=== PATIENT | male | born 1970 | race American Indian/Alaskan Native ===

== ENCOUNTER 2017-05-10 15:39 | Emergency (ER) | payer MEDICAID ==
[2017-05-10] MEDS ORDERED: Lidocaine 1% 20 ML MDV INJECT ONE (15:52)
[2017-05-10 16:45] VITALS: BP 120/68
[2017-05-10] MEDS ORDERED: Ketorolac 30 MG/ML SDV IVPUSH ONE (18:04)
[2017-05-10] MEDS ORDERED: ceFAZolin 1 GM in Sodium Chloride 0.9% 50 ML IV ONE (18:04)
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
== END 2017-05-10 18:52 | disposition home or self-care (01) ==
LOC: JP.ED 15:39
DX: S01.81XA Laceration without foreign body of other part of head, initial encounter (principal); F17.210 Nicotine dependence, cigarettes, uncomplicated; Z87.01 Personal history of pneumonia (recurrent); W22.8XXA Striking against or struck by other objects, initial encounter
CPT/HCPCS: 12015; 70450; 70486; 96365; 96375; 99284; J0690; J1885; J7050; 99282-25

== ENCOUNTER 2023-08-16 05:10 | Emergency (ER) | payer MEDICAID ==
[2023-08-16 05:18] VITALS: BP 118/72; PULSE 84
== END 2023-08-16 06:30 | disposition home or self-care (01) ==
LOC: JP.ED 05:10
DX: S52.571A Other intraarticular fracture of lower end of right radius, initial encounter for closed fracture (principal); S52.611A Displaced fracture of right ulna styloid process, initial encounter for closed fracture; W10.9XXA Fall (on) (from) unspecified stairs and steps, initial encounter
CPT/HCPCS: 73110-26-RT; 73110-RT; 99283

== ENCOUNTER 2023-08-21 06:01 | Day surgery (SDC) | payer MEDICAID ==
[2023-08-21] MEDS ORDERED: Nozin Nasal Sanitizer NASBOTH ONE (06:30)
[2023-08-21 06:33] LABS: HEMATOCRIT 46.6 % (38.4-49.7); HEMOGLOBIN 15.3 g/dL (12.9-16.9); MEAN CORPUSCULAR HGB CONC 32.8 g/dL (31.6-35.5); MEAN CORPUSCULAR VOLUME 85.2 fL (81.4-99.0); RED BLOOD CELL COUNT 5.47 M/uL (4.14-5.76); WHITE BLOOD CELL COUNT,WBC 6.5 K/uL (3.2-11.0)
[2023-08-21] MEDS ORDERED: Bupivacaine 0.5% 50 ML MDV ONE (06:44)
[2023-08-21] MEDS ORDERED: Bupivacaine 0.5%/EPINEPHrine 1:200,000 50 ML MDV ONE (06:44)
[2023-08-21 06:54] LABS: A/G RATIO 0.8 (1.2-2.2); ALANINE AMINOTRANSFERASE,ALT 37 U/L (12-78); ALKALINE PHOSPHATASE 151 U/L (46-116); ANION GAP 7.4 mmol/L (5.0-14.0); ASPARTATE AMNIOTRANSFERASE,AST 35 U/L (15-37); BILIRUBIN TOTAL 0.4 mg/dL (0.2-1.0); BLOOD UREA NITROGEN,BUN 9 mg/dL (7-18); CALCIUM 7.9 mg/dL (8.5-10.1); CARBON DIOXIDE,CO2 32 mmol/L (21-32); CHLORIDE,CL 106 mmol/L (100-108); CREATININE 0.9 mg/dL (0.8-1.3); EST CRCL DRUG DOSING (CG) 107.27 mL/min; ESTIMATED GFR 102 mL/min (>60); GLUCOSE RANDOM 95 mg/dL (74-106); POTASSIUM,K 3.6 mmol/L (3.6-5.2); PROTEIN TOTAL,TP 6.6 g/dL (6.4-8.2); SODIUM,NA 145 mmol/L (140-148)
[2023-08-21] MEDS ORDERED: Lactated Ringers 1,000 ML IV SCH (07:00)
[2023-08-21] MEDS ORDERED: Propofol 200 MG/20 ML SDV ONE ×2 (07:25→08:16)
[2023-08-21] MEDS ORDERED: fentaNYL 100 MCG/2 ML SDV ONE (07:25)
[2023-08-21] MEDS ORDERED: Midazolam 1 MG/ML 2 ML SDV ONE (07:25)
[2023-08-21] MEDS ORDERED: Lidocaine 0.5% 50 ML SDV ONE (07:28)
[2023-08-21] MEDS ORDERED: ceFAZolin 1 GM in Premix Bag 1 BAG IV ONE (07:30)
[2023-08-21] MEDS ORDERED: Morphine 2 MG/ML SYRINGE IVPUSH ONE ×2 (08:52→09:30)
[2023-08-21] MEDS ORDERED: Naloxone 0.4 MG/ML SDV IVPUSH PRN (08:52)
[2023-08-21] MEDS ORDERED: Acetaminophen/HYDROcodone 325-5 MG Tab PO PRN (09:13)
[2023-08-21 10:15] VITALS: BP 140/88; PULSE 70
== END 2023-08-21 10:40 | disposition home or self-care (01) ==
LOC: JP.SDS 06:01
PROVIDERS: ATTEND Specialist
DX: S52.551A Other extraarticular fracture of lower end of right radius, initial encounter for closed fracture (principal); J45.909 Unspecified asthma, uncomplicated; W19.XXXA Unspecified fall, initial encounter
CPT/HCPCS: 25606; 36415; 76000; 80053; 85027; 93005; A9270; J0690; J2250; J2270; J2704; J3010; J3490; J7120